=== PATIENT | male | born 1965 | race Caucasian/White ===

== ENCOUNTER 2020-12-11 13:43 | Outpatient (REF) | payer MEDICARE, MEDICAID, SELFPAY | END 2020-12-11 13:44 | disposition home or self-care (01) | LOC: HO.LAB 13:43 | PROVIDERS: Visit Provider Internal Medicine | DX: Z20.822 Contact with and (suspected) exposure to COVID-19 (principal) | CPT/HCPCS: 36415; C9803; U0003; U0005 ==

== ENCOUNTER 2021-07-22 12:19 | Outpatient (REF) | payer OTHER, SELFPAY | END 2021-07-22 12:20 | disposition home or self-care (01) | LOC: HO.LAB 12:19 | PROVIDERS: PCP Physician Assistant Medical; Visit Provider Internal Medicine | DX: Z20.822 Contact with and (suspected) exposure to COVID-19 (principal) | CPT/HCPCS: C9803; U0003; U0005 ==

== ENCOUNTER 2022-02-27 09:02 | Outpatient (REF) | payer OTHER, SELFPAY ==
[2022-02-27 09:34] LABS: COVID-19 Test Negative (Negative)
== END 2022-02-27 09:03 | disposition home or self-care (01) ==
LOC: HO.LAB 09:02
PROVIDERS: Visit Provider Internal Medicine
DX: Z20.822 Contact with and (suspected) exposure to COVID-19 (principal)
CPT/HCPCS: 87635; C9803

== ENCOUNTER 2022-07-28 11:33 | Outpatient (REF) | payer OTHER, SELFPAY ==
[2022-07-28 12:26] LABS: COVID-19 Test Negative (Negative)
== END 2022-07-28 11:34 | disposition home or self-care (01) ==
LOC: HO.LAB 11:33
PROVIDERS: Visit Provider Internal Medicine
DX: Z20.822 Contact with and (suspected) exposure to COVID-19 (principal)
CPT/HCPCS: 87635; C9803